=== PATIENT | male | born 1995 | race Asian ===

== ENCOUNTER 2018-04-26 05:21 | Emergency (ER) | payer OTHER ==
[2018-04-26] MEDS ORDERED: NS 1,000 ML IV ONE (05:29)
[2018-04-26] MEDS ORDERED: ONDANSETRON 4 MG/2 ML VIAL IVP ONE (05:29)
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
[2018-04-26 05:41] LABS: PLATELET COUNT 221 10^3/uL (150-400)
[2018-04-26] MEDS ORDERED: PROPARACAINE/FLUORESCEIN SOD 5 ML OPHT.BTL ONE (06:39)
[2018-04-26] MEDS ORDERED: HYDROCODONE/APAP 5/325 TAB PO ONE (07:02)
[2018-04-26] MEDS ORDERED: AMOXICILLIN/CLAVULANATE POT 875/125 MG TAB PO ONE (07:02)
[2018-04-26] MEDS ORDERED: HYDROCOD/APAP 5/325 PREPACK#6 BTL TAKEHOME ONE (07:02)
[2018-04-26 07:21] VITALS: BP 133/78
== END 2018-04-26 07:26 | disposition home or self-care (01) ==
DX: S02.80XA Fracture of other specified skull and facial bones, unspecified side, initial encounter for closed fracture (principal); S00.03XA Contusion of scalp, initial encounter; F10.920 Alcohol use, unspecified with intoxication, uncomplicated; F17.200 Nicotine dependence, unspecified, uncomplicated; R11.10 Vomiting, unspecified; Y04.8XXA Assault by other bodily force, initial encounter; Y99.8 Other external cause status; Y93.89 Activity, other specified
CPT/HCPCS: 96374; G0480; J2405